=== PATIENT | male | born 1990 | race Caucasian/White ===

== ENCOUNTER 2023-06-01 02:12 | Emergency (ER) | payer MEDICAID ==
[~2023-06-01] VITALS: Ht 185.4 cm; Wt 90.0 kg
[2023-06-01 02:19] VITALS: BP 136/72; PULSE 80; RESP 16; TEMP 98.4; O2SAT 99
== END 2023-06-01 06:47 | disposition home or self-care (01) ==
LOC: ER 02:12 → EDBD 02:12 → ER 06:47
DX: S06.0X0A Concussion without loss of consciousness, initial encounter (principal); M54.2 Cervicalgia; F10.129 Alcohol abuse with intoxication, unspecified; V49.9XXA Car occupant (driver) (passenger) injured in unspecified traffic accident, initial encounter; Y93.89 Activity, other specified; Y92.89 Other specified places as the place of occurrence of the external cause; Y99.8 Other external cause status; Y90.4 Blood alcohol level of 80-99 mg/100 ml
CPT/HCPCS: 36415; 71045; 72128; 72131; 80320; 99284; G0480